=== PATIENT | female | born 1995 | race Caucasian/White ===

== ENCOUNTER 2018-09-09 04:39 | Emergency (ER) | payer OTHER ==
[2018-09-09 05:00] VITALS: BMI 31.6
[2018-09-09] MEDS ORDERED: ONDANSETRON 4 MG/2 ML VIAL IVPUSH ONE (05:22)
[2018-09-09] MEDS ORDERED: SODIUM CHLORIDE 1,000 ML IV STA (05:22)
[2018-09-09] MEDS ORDERED: MAG HYDROX/AL HYDROX/SIMETH -MYLANTA- ORAL SUSPENSION PO ONE (05:22)
[2018-09-09] MEDS ORDERED: FAMOTIDINE 20 MG/50 ML IVPB 20 MG/50 ML MG IVPB ONE ×2 (05:22→05:43)
[2018-09-09] MEDS ORDERED: ACETAMINOPHEN 1000 MG/100 ML VIAL (NON FORMULARY) IVPB ONE (05:22)
[2018-09-09] MEDS ORDERED: ACETAMINOPHEN INJECTION 100 ML IVPB ONE (05:43)
[2018-09-09] MEDS ORDERED: MAG HYDROX/AL HYDROX/SIMETH 30 ML UNIT-DOSE CUP ONE (05:43)
[2018-09-09] MEDS ORDERED: ONDANSETRON 4 MG/2 ML VIAL ONE (05:43)
--- NOTE | 2018-09-09 05:46 | PDOC ---
History of Present Illness - General Chief Complaint: Pain Stated Complaint: ABDOMINAL PAIN Time Seen by Provider: 09/09/18 04:47 - History of Present Illness Initial Comments: 23yo F smoker and marijuana user presenting with abdominal pain. Patient states the pain started yesterday afternoon and described as a throbbing and pinching. She has never had anything like this happen before. Patient reports having difficulty sleeping and worsening 10/10 pain prompted her to come to the ED. Unable to specify what makes her pain worse except for laying flat. She has had three episodes of NBNB vomiting. Last bowel movement was a loose green stool without blood. She has not been able to tolerate eating without vomiting. History of . Took an aleve for a headache which helped her headache but did nothing for her abdominal pain. Denies fevers, but has had chills. Reports shortness of breath which she attributes to her abdominal pain. Denies sick contacts. No chest pain. Past History - Past Medical History Allergies/Adverse Reactions: Allergies Allergy/AdvReac Type Severity Reaction Status Date / Time No Known Drug Allergies Allergy Verified 09/09/18 04:56 Home Medications: Ambulatory Orders Famotidine [Pepcid] 20 mg PO BID #6 tablet 09/09/18 Ondansetron [Zofran Odt -] 4 mg SL TID #9 od.tablet 09/09/18 Anemia: No Asthma: No Cancer: No Cardiac Disorders: No CVA: No COPD: No CHF: No Dementia: No Diabetes: No GI Disorders: No Disorders: No HTN: No Hypercholesterolemia: No Kidney Stones: No Liver Disease: No Seizures: No Thyroid Disease: No - Reproductive History PID: No - Suicide/Smoking/Psychosocial Hx Smoking History: Never smoked Have you smoked in the past 12 months: No Number of Cigarettes Smoked Daily: 15 If you are a former smoker, when did you quit?: quit when knew about pregn at 2 months gestation Information on smoking cessation initiated: No 'Breaking Loose' booklet given: 05/04/14 Hx Alcohol Use: Yes Drug/Substance Use Hx: No Substance Use Type: Marijuana Hx Substance Use Treatment: No Review of Systems - Review of Systems Comments:: Constitutional: no fever, +chills HEENT: no throat pain, no dysphagia Cardiovascular: no chest pain, no palpitations Respiratory: no cough, +shortness of breath Gastrointestinal: +abdominal pain, +nausea, +vomiting Genitourinary: no dysuria, no frequency Musculoskeletal: no myalgia, no arthralgia Skin: no rash, no itching Neurologic: no headache, no dizziness *Physical Exam - Vital Signs Last Vital Signs Temp Pulse Resp BP Pulse Ox 99.5 F 89 18 115/65 99 09/09/18 04:40 09/09/18 04:40 09/09/18 04:40 09/09/18 04:40 09/09/18 04:40 - Physical Exam Comments: General: Awake, alert, and fully oriented Head: No signs of trauma Eyes: EOMI, sclera anicteric ENT: Dry mucus membranes Neck: Normal ROM, supple Lungs: Lungs clear, Normal breath sounds Cardio: Regular rhythm, S1 and S2 present Abdomen: Tender to palpation diffusely, Soft, nondistended with guarding. No rebound, no masses Extremities: Normal range of motion, Distal pulses present SKIN: Warm, Dry, normal turgor Neurologic: Cranial nerves II through XII grossly intact. Normal speech Moderate Sedation - Procedure Monitoring Vital Signs: Procedure Monitoring Vital Signs Temperature 99.5 F 09/09/18 04:40 Pulse Rate 89 09/09/18 04:40 Respiratory Rate 18 09/09/18 04:40 Blood Pressure 115/65 09/09/18 04:40 O2 Sat by Pulse Oximetry (%) 99 09/09/18 04:40 ED Treatment Course - LABORATORY CBC & Chemistry Diagram: 09/09/18 05:30 09/09/18 05:30 Medical Decision Making - Medical Decision Making 23yo F smoker and marijuana user presenting with abdominal pain. -DDX includes but not limited to gastroenteritis, pancreatitis, UTI, , cholecystitis -Labs -Ofirmev, Pepcid, Maalox, Fluids -Reassess 09/09/18 05:49 Patient observed sleeping in stretcher 09/09/18 06:44 Patient reports continued 06/09 abdominal pain. No longer nauseous. Abdominal exam still elicits tenderness diffusely. 2mg morphine ordered CTAP with iv contrast ordered 09/09/18 06:53 Patient signed out to Dr. Sierra 09/09/18 07:09 *DC/Admit/Observation/Transfer Diagnosis at time of Disposition: Vomiting Qualifiers: Vomiting type: unspecified Vomiting Intractability: unspecified Nausea presence : unspecified Qualified Code(s): R11.10 - Vomiting, unspecified Abdominal pain Qualifiers: Abdominal location: unspecified location Qualified Code(s): R10.9 - Unspecified abdominal pain - Discharge Dispostion Disposition: HOME Condition at time of disposition: Fair - Prescriptions Prescriptions: Famotidine [Pepcid] 20 mg PO BID #6 tablet Ondansetron [Zofran Odt -] 4 mg SL TID #9 od.tablet - Referrals Referrals: Umm Kraus MD [Primary Care Provider] - - Patient Instructions Printed Discharge Instructions: DI for Abdominal Pain-Adult, Nausea and Vomiting-Adult Additional Instructions: You were evaluated today in the ER for your symptoms. No concerning findings were found at this time on laboratory evaluation or with CT scan. We have sent medications to your pharmacy for symptomatic relief. Take all as proscribed. Follow-up with primary care provider in 2-3 days for further evaluation. Return to ER if any fever, chills, increase in pain, or other concerning symptoms. - Post Discharge Activity
--- NOTE | 2018-09-09 06:07 | PDOC ---
Attending Attestation - Resident Resident Name: KyleeShefali - ED Attending Attestation I have performed the following: I have examined & evaluated the patient, The case was reviewed & discussed with the resident, I agree w/resident's findings & plan, Exceptions are as noted - HPI HPI: 09/09/18 06:05 23F no pmh, psh , active marijuana smoker here with pinching abdominal px, persistent since yesterday a/w n/v, nbnb - Physicial Exam PE: 09/09/18 07:20 Patient visibly uncomfortable, holding abd Abd soft, diffusely tender, no guarding, no rebound - Medical Decision Making 09/09/18 07:20 Likely AGE, consider hepatobiliary pathology, pancreatitis, oil mixer pathology f/u labs analgesia, re-eval if no improvement, focality in abd exam, will need imaging
[2018-09-09 06:08] LABS: ALBUMIN 3.8 g/dl (3.4-5.0); ALK PHOS 74 U/L (45-117); ANION GAP 7 MMOL/L (8-16); BILIRUBIN,TOTAL 0.9 mg/dL (0.2-1); BLOOD UREA NITROGEN 11 mg/dL (7-18); CALCIUM 8.8 mg/dL (8.5-10.1); CHLORIDE 104 mmol/L (98-107); CO2 25 mmol/L (21-32); CREATININE 0.8 mg/dL (0.55-1.3); GLUCOSE,RANDOM 84 mg/dL (74-106); LIPASE 40 U/L (73-393); POTASSIUM 3.3 mmol/L (3.5-5.1); SGOT/AST 10 U/L (15-37); SGPT/ALT 14 U/L (13-61); SODIUM 136 mmol/L (136-145); TOT PROT 7.4 g/dl (6.4-8.2)
[2018-09-09 06:09] LABS: BASO % 0.4 % (0-2.0); HEMATOCRIT 39.9 % (32.4-45.2); HEMOGLOBIN 12.4 GM/dL (10.7-15.3); LYMPH % 4.5 % (8-40); MCH 23.8 pg (25.7-33.7); MCHC 31.1 g/dl (32.0-36.0); MEAN CELL VOLUME 76.6 fl (80-96); MEAN PLT VOLUME 8.3 fl (7.5-11.1); NEUT % 93.1 % (42.8-82.8); PLATELET COUNT 157 K/MM3 (134-434); RBC 5.21 M/mm3 (3.60-5.2); RDW 18.6 % (11.6-15.6); WHITE BLOOD COUNT 10.8 K/mm3 (4.0-10.0)
[2018-09-09 06:53] LABS: HCG,QUALITATIVE URINE Negative
[2018-09-09] MEDS ORDERED: morphine CARPU-JECT 2 MG/1 ML DISP.SYRIN IVPUSH ONE (06:57)
[2018-09-09] MEDS ORDERED: MORPHINE SULFATE 2 MG/ML VIAL ONE (07:00)
--- NOTE | 2018-09-09 07:04 | PDOC ---
History of Present Illness - General Chief Complaint: Pain Stated Complaint: ABDOMINAL PAIN Time Seen by Provider: 09/09/18 04:47 Past History - Past Medical History Allergies/Adverse Reactions: Allergies Allergy/AdvReac Type Severity Reaction Status Date / Time No Known Drug Allergies Allergy Verified 09/09/18 04:56 Home Medications: Ambulatory Orders Famotidine [Pepcid] 20 mg PO BID #6 tablet 09/09/18 Ondansetron [Zofran Odt -] 4 mg SL TID #9 od.tablet 09/09/18 Anemia: No Asthma: No Cancer: No Cardiac Disorders: No CVA: No COPD: No CHF: No Dementia: No Diabetes: No GI Disorders: No Disorders: No HTN: No Hypercholesterolemia: No Kidney Stones: No Liver Disease: No Seizures: No Thyroid Disease: No - Reproductive History PID: No - Immunization History Immunization Up to Date: Yes - Suicide/Smoking/Psychosocial Hx Smoking History: Never smoked Have you smoked in the past 12 months: No Number of Cigarettes Smoked Daily: 15 If you are a former smoker, when did you quit?: quit when knew about pregn at 2 months gestation Information on smoking cessation initiated: No 'Breaking Loose' booklet given: 05/04/14 Hx Alcohol Use: Yes Drug/Substance Use Hx: No Substance Use Type: Marijuana Hx Substance Use Treatment: No *Physical Exam - Vital Signs Last Vital Signs Temp Pulse Resp BP Pulse Ox 99.5 F 89 18 115/65 99 09/09/18 04:40 09/09/18 04:40 09/09/18 04:40 09/09/18 04:40 09/09/18 04:40 Moderate Sedation - Procedure Monitoring Vital Signs: Procedure Monitoring Vital Signs Temperature 99.5 F 09/09/18 04:40 Pulse Rate 89 09/09/18 04:40 Respiratory Rate 18 09/09/18 04:40 Blood Pressure 115/65 09/09/18 04:40 O2 Sat by Pulse Oximetry (%) 99 09/09/18 04:40 ED Treatment Course - LABORATORY CBC & Chemistry Diagram: 09/09/18 05:30 09/09/18 05:30 - ADDITIONAL ORDERS Additional order review: Laboratory Results 09/09/18 09/09/18 06:12 05:30 Sodium 136 Potassium 3.3 L Chloride 104 Carbon Dioxide 25 Anion Gap 7 L BUN 11 Creatinine 0.8 Creat Clearance w eGFR > 60 Random Glucose 84 Calcium 8.8 Total Bilirubin 0.9 AST 10 L ALT 14 Alkaline Phosphatase 74 Total Protein 7.4 Albumin 3.8 Lipase 40 L Urine HCG, Qual Negative 09/09/18 05:30 RBC 5.21 H MCV 76.6 L MCHC 31.1 L RDW 18.6 H MPV 8.3 Neutrophils % 93.1 H D Lymphocytes % 4.5 L D Monocytes % 2.0 L Eosinophils % 0.0 D Basophils % 0.4 - Medications Given in the ED: ED Medications Discontinued Medications Generic Name Dose Route Start Last Admin Trade Name Freq PRN Reason Stop Dose Admin Acetaminophen 1,000 mg 09/09/18 05:22 09/09/18 05:52 Ofirmev Injection - IVPB 09/09/18 05:23 1,000 mg ONCE ONE Administration Al Hydroxide/Mg Hydroxide 30 ml 09/09/18 05:22 09/09/18 05:52 Mylanta Suspension - PO 09/09/18 05:23 30 ml ONCE ONE Administration Famotidine/Sodium Chloride 20 mg in 50 mls @ 100 mls/hr 09/09/18 05:22 06:00 Pepcid 20 Mg Premixed Ivpb - IVPB 09/09/18 05:51 100 mls/hr ONCE ONE Administration Sodium Chloride 1,000 mls @ 1,000 mls/hr 09/09/18 05:22 09/09/18 05:52 Normal Saline - IV 09/09/18 06:21 1,000 mls/hr ASDIR STA Administration Morphine Sulfate 2 mg 09/09/18 06:57 09/09/18 07:03 Morphine Injection - IVPUSH 09/09/18 06:58 2 mg ONCE ONE Administration Ondansetron HCl 4 mg 09/09/18 05:22 09/09/18 05:52 Zofran Injection IVPUSH 09/09/18 05:23 4 mg ONCE ONE Administration Medical Decision Making - Medical Decision Making 09/09/18 07:[address] Pichardo. Patient is a 23 yo female w/ no significant pmh currently pending abdominal/pelvis CT for evaluation of N/V/abdominal pain. 09/09/18 09:[address] negative. No concern for acute process at this time. Discharging patient to home w/ instructions to f/u w/ PCP for further evaluation. *DC/Admit/Observation/Transfer Diagnosis at time of Disposition: Vomiting Qualifiers: Vomiting type: unspecified Vomiting Intractability: unspecified Nausea presence : unspecified Qualified Code(s): R11.10 - Vomiting, unspecified Abdominal pain Qualifiers: Abdominal location: unspecified location Qualified Code(s): R10.9 - Unspecified abdominal pain - Discharge Dispostion Disposition: HOME Condition at time of disposition: Fair - Prescriptions Prescriptions: Famotidine [Pepcid] 20 mg PO BID #6 tablet Ondansetron [Zofran Odt -] 4 mg SL TID #9 od.tablet - Referrals Referrals: Umm Kraus MD [Primary Care Provider] - - Patient Instructions Printed Discharge Instructions: DI for Abdominal Pain-Adult, Nausea and Vomiting-Adult Additional Instructions: You were evaluated today in the ER for your symptoms. No concerning findings were found at this time on laboratory evaluation or with CT scan. We have sent medications to your pharmacy for symptomatic relief. Take all as proscribed. Follow-up with primary care provider in 2-3 days for further evaluation. Return to ER if any fever, chills, increase in pain, or other concerning symptoms. - Post Discharge Activity
[2018-09-09 07:18] LABS: URINE APPEARANCE TURBID; URINE BILIRUBIN NEGATIVE (<2.0 mg/dL); URINE COLOR YELLOW; URINE GLUCOSE (UA) NEGATIVE (NEGATIVE); URINE KETONE TRACE (NEGATIVE); URINE LEUK ESTERASE TRACE (NEGATIVE); URINE NITRITE NEGATIVE (NEGATIVE); URINE PROTEIN 1+ (NEGATIVE); URINE UROBILINOGEN NEGATIVE mg/dL (0.2-1.0)
[2018-09-09 08:12] LABS: URINE BACTERIA FEW /hpf (NONE SEEN)
[2018-09-09 10:28] VITALS: BP 122/69; PULSE 75; TEMP 98.6
[2018-09-09 10:39] LABS: ANISOCYTOSIS 1+; MACROCYTOSIS 0
[2018-09-09 10:58] LABS: PLATELET ESTIMATE ADEQUATE
== END 2018-09-09 10:41 | disposition home or self-care (01) ==
LOC: JER 04:39
PROC: 3E033GC Introduction of Other Therapeutic Substance into Peripheral Vein, Percutaneous Approach (ICD-10-PCS; principal; 2018-09-09)
PROC: 3E033NZ Introduction of Analgesics, Hypnotics, Sedatives into Peripheral Vein, Percutaneous Approach (ICD-10-PCS; 2018-09-09)
PROC: 3E033NZ Introduction of Analgesics, Hypnotics, Sedatives into Peripheral Vein, Percutaneous Approach (ICD-10-PCS; 2018-09-09)
PROC: 3E033GC Introduction of Other Therapeutic Substance into Peripheral Vein, Percutaneous Approach (ICD-10-PCS; 2018-09-09)
DX: R10.84 Generalized abdominal pain (principal)
CPT/HCPCS: 36415; 74177-TC; 80053; 81003; 81015; 83690; 84703; 85025; 87086; 99282-25; J0131; J7030

== ENCOUNTER 2022-09-04 18:22 | Emergency (ER) | payer OTHER ==
[2022-09-04 19:04] VITALS: BP 98/66; PULSE 75; RESP 17; TEMP 98; BMI 26.6
[2022-09-04 20:31] LABS: URINE APPEARANCE CLEAR; URINE BILIRUBIN NEGATIVE (NEGATIVE); URINE COLOR YELLOW; URINE GLUCOSE (UA) NEGATIVE (NEGATIVE); URINE KETONE NEGATIVE (NEGATIVE); URINE LEUK ESTERASE NEGATIVE (NEGATIVE); URINE NITRITE NEGATIVE (NEGATIVE); URINE PROTEIN NEGATIVE (NEGATIVE); URINE UROBILINOGEN 0.2 mg/dL (0.2-1.0)
== END 2022-09-04 20:41 | disposition home or self-care (01) ==
LOC: JERFT 18:22
PROC: 3E023GC Introduction of Other Therapeutic Substance into Muscle, Percutaneous Approach (ICD-10-PCS; principal; 2022-09-04)
DX: R10.2 Pelvic and perineal pain (principal)
CPT/HCPCS: 36415; 81003; 87086; 87491; 87591; 99284-25

== ENCOUNTER 2024-03-25 10:53 | Inpatient (IN) | payer OTHER ==
[2024-03-25 11:41] VITALS: BMI 25.8
[2024-03-25] MEDS ORDERED: guaiFENesin 600 MG TABLET.ER (FP) PO PRN (11:55)
[2024-03-25] MEDS ORDERED: NALOXONE (NARCAN) HCL 4 MG/0.1 ML SPRAY NS PRN (11:55)
[2024-03-25] MEDS ORDERED: P-EPHED 60MG/TRIPROLIDI 2.5MG TABLET PO PRN (11:55)
[2024-03-25] MEDS ORDERED: BISMUTH SUBSALICYLATE 524 MG/30 ML PO PRN (11:55)
[2024-03-25] MEDS ORDERED: IBUPROFEN 400 MG TABLET (FP) PO PRN (11:55)
[2024-03-25] MEDS ORDERED: MAGNESIUM HYDROX 2400MG/30ML ORAL SUSPENSION 30 ML CUP PO PRN (11:55)
[2024-03-25] MEDS ORDERED: BENZOCAINE/MENTHOL (CHLORASEPTIC ) LOZENGE MM PRN (11:55)
[2024-03-25] MEDS ORDERED: DICYCLOMINE HCL 10 MG CAPSULE PO PRN (11:55)
[2024-03-25] MEDS ORDERED: ONDANSETRON *ODT* 4 MG TABLET SL PRN (11:55)
[2024-03-25] MEDS ORDERED: POLYETHYLENE GLYCOL (HEALTHYLAX) 3350 17 GM PACKET PO PRN (11:55)
[2024-03-25] MEDS ORDERED: LOPERAMIDE HCL 2 MG CAPSULE PO PRN (11:55)
[2024-03-25] MEDS ORDERED: NALOXONE HCL 0.4 MG/ML VIAL IM PRN (11:55)
[2024-03-25] MEDS ORDERED: BENZONATATE 200 MG CAPSULE PO PRN (11:55)
[2024-03-25] MEDS ORDERED: methaDONE HCL 10 MG TABLET (FOR DETOX USE ONLY) ONE (12:28)
[2024-03-25] MEDS ORDERED: METHOCARBAMOL 500 MG TABLET ONE (12:29)
[2024-03-25] MEDS: METHOCARBAMOL 500 MG TABLET PO PRN ×2 (12:35→22:21)
[2024-03-25] MEDS: methaDONE HCL 10 MG TABLET (FOR DETOX USE ONLY) PO ONE (12:35)
[2024-03-25] MEDS ORDERED: hydrOXYzine PAMOATE 25 MG CAPSULE (FP) PO ONE (14:26)
[2024-03-25] MEDS: hydrOXYzine PAMOATE 50 MG CAPSULE (FP) PO ONE (14:31)
[2024-03-25] MEDS: cloNIDine HCL 0.1 MG TABLET PO PRN (15:22)
[2024-03-25] MEDS: ACETAMINOPHEN 325 MG TABLET (FP) PO PRN (15:22)
[2024-03-25] MEDS: diazePAM 5 MG TABLET PO PRN (20:11)
[2024-03-25] MEDS: MELATONIN 5 MG TABLETS PO SCH (22:20)
[2024-03-25] MEDS: THIAMINE 100 MG TABLET PO SCH (22:20)
[2024-03-26] MEDS: IBUPROFEN 600 MG TABLET (FP) PO PRN (01:36)
[2024-03-26] MEDS: diazePAM 5 MG TABLET PO ONE (01:48)
[2024-03-26] MEDS: methaDONE HCL 10 MG TABLET (FOR DETOX USE ONLY) PO ONE (09:24)
[2024-03-26] MEDS: PRENATAL VITAMINS W/ FOLIC ACID TABLET (FP) PO SCH (09:25)
[2024-03-26] MEDS: hydrOXYzine PAMOATE 25 MG CAPSULE (FP) PO PRN (10:21)
[2024-03-26 10:45] LABS: HEMATOCRIT 36.6 % (32.4-45.2); HEMOGLOBIN 12.6 GM/dL (10.7-15.3); MCH 30.8 pg (25.7-33.7); MCHC 34.4 g/dl (32.0-36.0); MEAN CELL VOLUME 89.6 fl (80-96); MEAN PLT VOLUME 9.8 fl (7.5-11.1); PLATELET COUNT 139 10^3/uL (134-434); RBC 4.09 M/mm3 (3.60-5.2); RDW 14.5 % (11.6-15.6)
[2024-03-26 10:58] LABS: POTASSIUM 4.3 mmol/L (3.5-5.1)
[2024-03-26 11:03] LABS: ALBUMIN 4.1 g/dl (3.4-5.0)
[2024-03-26 11:04] LABS: BLOOD UREA NITROGEN 7.3 mg/dL (7-18); CALCIUM 9.7 mg/dL (8.5-10.1)
[2024-03-26 11:06] LABS: CREATININE 0.7 mg/dL (0.55-1.3)
[2024-03-26 11:09] LABS: BILIRUBIN,TOTAL 0.8 mg/dL (0.2-1); TOT PROT 7.2 g/dl (6.4-8.2)
[2024-03-26] MEDS: MELATONIN 5 MG TABLETS PO SCH (22:02)
[2024-03-27] MEDS: MAG HYDROX/AL HYDROX/SIMETH 30 ML UNIT-DOSE CUP PO PRN (08:31)
[2024-03-27] MEDS: methaDONE HCL 10 MG TABLET (FOR DETOX USE ONLY) PO ONE (09:14)
[2024-03-27 09:21] VITALS: RESP 18
[2024-03-27] MEDS: QUEtiapine FUMARATE 25 MG TABLET PO SCH (21:12)
[2024-03-28] MEDS: methaDONE HCL 10 MG TABLET (FOR DETOX USE ONLY) PO ONE (09:11)
[2024-03-28 09:21] VITALS: BP 99/61; PULSE 81; TEMP 97.7
== END 2024-03-28 09:15 | disposition home or self-care (01) | DRG 773 ==
LOC: YASAS 10:53 → Y3N 14:23
PROVIDERS: ADMIT Allergy & Immunology; ATTEND Surgery
PROC: HZ2ZZZZ Detoxification Services for Substance Abuse Treatment (ICD-10-PCS; principal; 2024-03-25)
DX: F11.23 Opioid dependence with withdrawal (principal); F10.230 Alcohol dependence with withdrawal, uncomplicated; F12.20 Cannabis dependence, uncomplicated; F31.9 Bipolar disorder, unspecified; F41.9 Anxiety disorder, unspecified; Z62.810 Personal history of physical and sexual abuse in childhood; Z63.8 Other specified problems related to primary support group
CPT/HCPCS: 36415; 80053; 80305; 80307; 81025; 85027; 86780; 93005; 93010

== ENCOUNTER 2024-04-06 09:09 | Inpatient (IN) | payer OTHER ==
[2024-04-06 09:38] VITALS: BMI 25.0
[2024-04-06] MEDS ORDERED: NALOXONE HCL 0.4 MG/ML VIAL IM PRN (10:49)
[2024-04-06] MEDS ORDERED: BENZOCAINE/MENTHOL (CHLORASEPTIC ) LOZENGE MM PRN (10:49)
[2024-04-06] MEDS ORDERED: POLYETHYLENE GLYCOL (HEALTHYLAX) 3350 17 GM PACKET PO PRN (10:49)
[2024-04-06] MEDS ORDERED: LOPERAMIDE HCL 2 MG CAPSULE PO PRN (10:49)
[2024-04-06] MEDS ORDERED: BISMUTH SUBSALICYLATE 262 MG/15 ML BTL PO PRN (10:49)
[2024-04-06] MEDS ORDERED: MAGNESIUM HYDROX 2400MG/30ML ORAL SUSPENSION 30 ML CUP PO PRN (10:49)
[2024-04-06] MEDS ORDERED: ONDANSETRON *ODT* 4 MG TABLET SL PRN (10:49)
[2024-04-06] MEDS ORDERED: guaiFENesin 600 MG TABLET.ER (FP) PO PRN (10:49)
[2024-04-06] MEDS ORDERED: NALOXONE (NARCAN) HCL 4 MG/0.1 ML SPRAY NS PRN (10:49)
[2024-04-06] MEDS ORDERED: MAG HYDROX/AL HYDROX/SIMETH 30 ML UNIT-DOSE CUP PO PRN (10:49)
[2024-04-06] MEDS ORDERED: BENZONATATE 200 MG CAPSULE PO PRN (10:49)
[2024-04-06] MEDS ORDERED: DICYCLOMINE HCL 10 MG CAPSULE PO PRN (10:49)
[2024-04-06] MEDS ORDERED: IBUPROFEN 400 MG TABLET (FP) PO PRN (10:49)
[2024-04-06] MEDS ORDERED: methaDONE HCL 10 MG TABLET (FOR DETOX USE ONLY) ONE (11:10)
[2024-04-06] MEDS: methaDONE HCL 10 MG TABLET (FOR DETOX USE ONLY) PO ONE (11:18)
[2024-04-06] MEDS: cloNIDine HCL 0.1 MG TABLET PO PRN (12:32)
[2024-04-06] MEDS: hydrOXYzine PAMOATE 25 MG CAPSULE (FP) PO PRN (12:32)
[2024-04-06] MEDS: METHOCARBAMOL 500 MG TABLET PO PRN (12:48)
[2024-04-06] MEDS: diazePAM 5 MG TABLET PO PRN (12:48)
[2024-04-06] MEDS: clonazePAM 0.5 MG ODT TABLETS SL PRN (17:24)
[2024-04-06] MEDS: THIAMINE 100 MG TABLET PO SCH (21:29)
[2024-04-06] MEDS: MELATONIN 5 MG TABLETS PO SCH (21:29)
[2024-04-07] MEDS: PRENATAL VITAMINS W/ FOLIC ACID TABLET (FP) PO SCH (09:11)
[2024-04-07] MEDS: diazePAM 5 MG TABLET PO PRN (09:19)
[2024-04-07] MEDS: ACETAMINOPHEN 325 MG TABLET (FP) PO PRN (11:01)
[2024-04-07] MEDS: BUPRENORPHINE/NALOXONE 0.5 MG/0.125 MG FILM SL ONE ×2 (11:01→22:09)
[2024-04-07] MEDS: SUVOREXANT 10 MG TABLET PO PRN (22:09)
[2024-04-08] MEDS: BUPRENORPHINE/NALOXONE 0.5 MG/0.125 MG FILM SL SCH (09:47)
[2024-04-08] MEDS: methaDONE HCL 10 MG TABLET (FOR DETOX USE ONLY) PO ONE (09:47)
[2024-04-08] MEDS: SUVOREXANT 15 MG TABLET PO PRN (22:12)
[2024-04-09] MEDS: BUPRENORPHINE/NALOXONE 2 MG/0.5 MG FILM PACKET SL SCH (09:45)
[2024-04-09] MEDS: IBUPROFEN 600 MG TABLET (FP) PO PRN (17:41)
[2024-04-10] MEDS: methaDONE HCL 10 MG TABLET (FOR DETOX USE ONLY) PO ONE (09:50)
[2024-04-10] MEDS: BUPRENORPHINE/NALOXONE 4 MG/1 MG FILM PACKET SL SCH (09:50)
[2024-04-11 09:15] VITALS: BP 113/69; PULSE 66; RESP 16; TEMP 96.9
[2024-04-11] MEDS: BUPRENORPHINE/NALOXONE 8 MG/2 MG FILM PACKET SL SCH (09:16)
== END 2024-04-11 10:13 | disposition home or self-care (01) | DRG 773 ==
LOC: YASAS 09:09 → Y6N 11:17 → UNDODISIN 04-07 18:18
PROVIDERS: ADMIT Allergy & Immunology; ATTEND Surgery
PROC: HZ2ZZZZ Detoxification Services for Substance Abuse Treatment (ICD-10-PCS; principal; 2024-04-06)
DX: F11.23 Opioid dependence with withdrawal (principal); F12.20 Cannabis dependence, uncomplicated; F39 Unspecified mood [affective] disorder; F19.982 Other psychoactive substance use, unspecified with psychoactive substance-induced sleep disorder; F19.94 Other psychoactive substance use, unspecified with psychoactive substance-induced mood disorder; M32.9 Systemic lupus erythematosus, unspecified; Z87.891 Personal history of nicotine dependence; Z62.810 Personal history of physical and sexual abuse in childhood; Z86.19 Personal history of other infectious and parasitic diseases; Z56.0 Unemployment, unspecified
CPT/HCPCS: 80305; 81025; 93005; 93010

== ENCOUNTER 2024-04-26 13:10 | Inpatient (IN) | payer OTHER ==
[2024-04-26 14:22] VITALS: BMI 26.2
[2024-04-26] MEDS ORDERED: NALOXONE (NARCAN) HCL 4 MG/0.1 ML SPRAY NS PRN (15:32)
[2024-04-26] MEDS ORDERED: BISMUTH SUBSALICYLATE 262 MG/15 ML BTL PO PRN (15:32)
[2024-04-26] MEDS ORDERED: POLYETHYLENE GLYCOL (HEALTHYLAX) 3350 17 GM PACKET PO PRN (15:32)
[2024-04-26] MEDS ORDERED: MAGNESIUM HYDROX 2400MG/30ML ORAL SUSPENSION 30 ML CUP PO PRN (15:32)
[2024-04-26] MEDS ORDERED: P-EPHED 60MG/TRIPROLIDI 2.5MG TABLET PO PRN (15:32)
[2024-04-26] MEDS ORDERED: IBUPROFEN 400 MG TABLET (FP) PO PRN (15:32)
[2024-04-26] MEDS ORDERED: IBUPROFEN 600 MG TABLET (FP) PO PRN (15:32)
[2024-04-26] MEDS ORDERED: ACETAMINOPHEN 325 MG TABLET (FP) PO PRN (15:32)
[2024-04-26] MEDS ORDERED: NALOXONE HCL 0.4 MG/ML VIAL IM PRN (15:32)
[2024-04-26] MEDS ORDERED: BENZOCAINE/MENTHOL (CHLORASEPTIC ) LOZENGE MM PRN (15:32)
[2024-04-26] MEDS ORDERED: MAG HYDROX/AL HYDROX/SIMETH 30 ML UNIT-DOSE CUP PO PRN (15:32)
[2024-04-26] MEDS ORDERED: BENZONATATE 200 MG CAPSULE PO PRN (15:32)
[2024-04-26] MEDS ORDERED: LOPERAMIDE HCL 2 MG CAPSULE PO PRN (15:32)
[2024-04-26] MEDS ORDERED: guaiFENesin 600 MG TABLET.ER (FP) PO PRN (15:32)
[2024-04-26] MEDS ORDERED: methaDONE HCL 10 MG TABLET (FOR DETOX USE ONLY) ONE (15:46)
[2024-04-26] MEDS: methaDONE HCL 10 MG TABLET (FOR DETOX USE ONLY) PO ONE (15:51)
[2024-04-26] MEDS: hydrOXYzine PAMOATE 25 MG CAPSULE (FP) PO PRN (17:10)
[2024-04-26] MEDS: cloNIDine HCL 0.1 MG TABLET PO PRN (17:10)
[2024-04-26] MEDS: DICYCLOMINE HCL 10 MG CAPSULE PO PRN (17:11)
[2024-04-26] MEDS: ONDANSETRON *ODT* 4 MG TABLET SL PRN (17:47)
[2024-04-26] MEDS: diazePAM 5 MG TABLET PO PRN (22:10)
[2024-04-26] MEDS: MELATONIN 5 MG TABLETS PO SCH (22:10)
[2024-04-26] MEDS: METHOCARBAMOL 500 MG TABLET PO PRN (22:10)
[2024-04-26] MEDS: THIAMINE 100 MG TABLET PO SCH (22:10)
[2024-04-27] MEDS: PRENATAL VITAMINS W/ FOLIC ACID TABLET (FP) PO SCH (09:31)
[2024-04-27] MEDS: SUVOREXANT 15 MG TABLET PO PRN (22:21)
[2024-04-28 06:27] VITALS: RESP 16
[2024-04-28] MEDS: methaDONE HCL 10 MG TABLET (FOR DETOX USE ONLY) PO ONE (09:48)
[2024-04-28 09:54] VITALS: BP 117/63; PULSE 85; TEMP 97.7
[2024-04-30] MEDS ORDERED: methaDONE HCL 10 MG TABLET (FOR DETOX USE ONLY) PO ONE (10:00)
== END 2024-04-28 10:40 | disposition left against medical advice (07) | DRG 770 ==
LOC: YASAS 13:10 → Y3N 16:37 → Y6N 16:43
PROVIDERS: ADMIT Allergy & Immunology; ATTEND Surgery
PROC: HZ2ZZZZ Detoxification Services for Substance Abuse Treatment (ICD-10-PCS; principal; 2024-04-26)
DX: F11.23 Opioid dependence with withdrawal (principal); F12.20 Cannabis dependence, uncomplicated; F19.282 Other psychoactive substance dependence with psychoactive substance-induced sleep disorder; F39 Unspecified mood [affective] disorder; F41.9 Anxiety disorder, unspecified; D64.9 Anemia, unspecified; M32.9 Systemic lupus erythematosus, unspecified; Z62.810 Personal history of physical and sexual abuse in childhood; Z91.410 Personal history of adult physical and sexual abuse; Z63.0 Problems in relationship with spouse or partner; Z63.8 Other specified problems related to primary support group
CPT/HCPCS: 80305; 81025; Q0162

== ENCOUNTER 2024-05-06 08:56 | Inpatient (IN) | payer OTHER ==
[2024-05-06 09:40] VITALS: BMI 26.7
[2024-05-06] MEDS ORDERED: ONDANSETRON *ODT* 4 MG TABLET SL PRN (09:57)
[2024-05-06] MEDS ORDERED: BISMUTH SUBSALICYLATE 262 MG/15 ML BTL PO PRN (09:57)
[2024-05-06] MEDS ORDERED: BENZONATATE 200 MG CAPSULE PO PRN (09:57)
[2024-05-06] MEDS ORDERED: BENZOCAINE/MENTHOL (CHLORASEPTIC ) LOZENGE MM PRN (09:57)
[2024-05-06] MEDS ORDERED: MAG HYDROX/AL HYDROX/SIMETH 30 ML UNIT-DOSE CUP PO PRN (09:57)
[2024-05-06] MEDS ORDERED: NALOXONE (NARCAN) HCL 4 MG/0.1 ML SPRAY NS PRN (09:57)
[2024-05-06] MEDS ORDERED: LOPERAMIDE HCL 2 MG CAPSULE PO PRN (09:57)
[2024-05-06] MEDS ORDERED: POLYETHYLENE GLYCOL (HEALTHYLAX) 3350 17 GM PACKET PO PRN (09:57)
[2024-05-06] MEDS ORDERED: MAGNESIUM HYDROX 2400MG/30ML ORAL SUSPENSION 30 ML CUP PO PRN (09:57)
[2024-05-06] MEDS ORDERED: guaiFENesin 600 MG TABLET.ER (FP) PO PRN (09:57)
[2024-05-06] MEDS ORDERED: NALOXONE HCL 0.4 MG/ML VIAL IM PRN (09:57)
[2024-05-06] MEDS ORDERED: P-EPHED 60MG/TRIPROLIDI 2.5MG TABLET PO PRN (09:57)
[2024-05-06] MEDS: PRENATAL VITAMINS W/ FOLIC ACID TABLET (FP) PO SCH (10:27)
[2024-05-06] MEDS: hydrOXYzine PAMOATE 25 MG CAPSULE (FP) PO PRN (10:29)
[2024-05-06] MEDS ORDERED: hydrOXYzine PAMOATE 25 MG CAPSULE (FP) PO ONE (10:51)
[2024-05-06] MEDS: methaDONE HCL 10 MG TABLET (FOR DETOX USE ONLY) PO ONE (13:07)
[2024-05-06] MEDS: cloNIDine HCL 0.1 MG TABLET PO PRN (17:20)
[2024-05-06] MEDS: IBUPROFEN 400 MG TABLET (FP) PO PRN (17:23)
[2024-05-06] MEDS ORDERED: MELATONIN 5 MG TABLETS PO SCH (22:00)
[2024-05-06] MEDS: THIAMINE 100 MG TABLET PO SCH (22:25)
[2024-05-06] MEDS: SUVOREXANT 15 MG TABLET PO PRN (22:25)
[2024-05-06] MEDS: METHOCARBAMOL 500 MG TABLET PO PRN (22:26)
[2024-05-07] MEDS: DICYCLOMINE HCL 10 MG CAPSULE PO PRN (07:51)
[2024-05-07] MEDS: ACETAMINOPHEN 325 MG TABLET (FP) PO PRN (07:51)
[2024-05-07] MEDS: IBUPROFEN 600 MG TABLET (FP) PO PRN (12:02)
[2024-05-07 17:08] VITALS: RESP 18
[2024-05-08] MEDS: methaDONE HCL 10 MG TABLET (FOR DETOX USE ONLY) PO ONE (09:15)
[2024-05-08 09:49] VITALS: BP 138/69; PULSE 81; TEMP 97.6
[2024-05-10] MEDS ORDERED: methaDONE HCL 10 MG TABLET (FOR DETOX USE ONLY) PO ONE (10:00)
== END 2024-05-08 09:58 | disposition left against medical advice (07) | DRG 770 ==
LOC: YASAS 08:56 → Y6N 11:18
PROVIDERS: ADMIT Allergy & Immunology; ATTEND Family Medicine Addiction Medicine
PROC: HZ2ZZZZ Detoxification Services for Substance Abuse Treatment (ICD-10-PCS; principal; 2024-05-06)
DX: F11.23 Opioid dependence with withdrawal (principal); F13.20 Sedative, hypnotic or anxiolytic dependence, uncomplicated; F12.20 Cannabis dependence, uncomplicated; F19.282 Other psychoactive substance dependence with psychoactive substance-induced sleep disorder; F19.24 Other psychoactive substance dependence with psychoactive substance-induced mood disorder; F41.9 Anxiety disorder, unspecified; Z86.2 Personal history of diseases of the blood and blood-forming organs and certain disorders involving the immune mechanism; Z62.810 Personal history of physical and sexual abuse in childhood; Z91.410 Personal history of adult physical and sexual abuse; Z63.0 Problems in relationship with spouse or partner; Z63.8 Other specified problems related to primary support group
CPT/HCPCS: 80305; 80307; 81025

== ENCOUNTER 2024-05-16 08:51 | Inpatient (IN) | payer OTHER ==
[2024-05-16 09:25] VITALS: BMI 25.7
[2024-05-16] MEDS ORDERED: DICYCLOMINE HCL 10 MG CAPSULE PO PRN (09:35)
[2024-05-16] MEDS ORDERED: MAG HYDROX/AL HYDROX/SIMETH 30 ML UNIT-DOSE CUP PO PRN (09:35)
[2024-05-16] MEDS ORDERED: BENZOCAINE/MENTHOL (CHLORASEPTIC ) LOZENGE MM PRN (09:35)
[2024-05-16] MEDS ORDERED: ONDANSETRON *ODT* 4 MG TABLET SL PRN (09:35)
[2024-05-16] MEDS ORDERED: BISMUTH SUBSALICYLATE 524 MG/30 ML PO PRN (09:35)
[2024-05-16] MEDS ORDERED: BENZONATATE 200 MG CAPSULE PO PRN (09:35)
[2024-05-16] MEDS ORDERED: NALOXONE HCL 0.4 MG/ML VIAL IM PRN (09:35)
[2024-05-16] MEDS ORDERED: POLYETHYLENE GLYCOL (HEALTHYLAX) 3350 17 GM PACKET PO PRN (09:35)
[2024-05-16] MEDS ORDERED: guaiFENesin 600 MG TABLET.ER (FP) PO PRN (09:35)
[2024-05-16] MEDS ORDERED: IBUPROFEN 400 MG TABLET (FP) PO PRN (09:35)
[2024-05-16] MEDS ORDERED: MAGNESIUM HYDROX 2400MG/30ML ORAL SUSPENSION 30 ML CUP PO PRN (09:35)
[2024-05-16] MEDS ORDERED: LOPERAMIDE HCL 2 MG CAPSULE PO PRN (09:35)
[2024-05-16] MEDS ORDERED: NALOXONE (NARCAN) HCL 4 MG/0.1 ML SPRAY NS PRN (09:35)
[2024-05-16] MEDS ORDERED: methaDONE HCL 10 MG TABLET (FOR DETOX USE ONLY) ONE (10:28)
[2024-05-16] MEDS ORDERED: BUPRENORPHINE/NALOXONE 0.5 MG/0.125 MG FILM ONE (10:29)
[2024-05-16] MEDS ORDERED: cloNIDine HCL 0.1 MG TABLET ONE (10:29)
[2024-05-16] MEDS ORDERED: PRENATAL VITAMINS W/ FOLIC ACID TABLET (FP) PO ONE (10:29)
[2024-05-16] MEDS: BUPRENORPHINE/NALOXONE 0.5 MG/0.125 MG FILM SL ONE ×2 (10:34→22:11)
[2024-05-16] MEDS: PRENATAL VITAMINS W/ FOLIC ACID TABLET (FP) PO SCH (10:34)
[2024-05-16] MEDS: cloNIDine HCL 0.1 MG TABLET PO SCH (10:35)
[2024-05-16] MEDS: methaDONE HCL 10 MG TABLET (FOR DETOX USE ONLY) PO ONE (10:35)
[2024-05-16] MEDS: IBUPROFEN 600 MG TABLET (FP) PO PRN (17:27)
[2024-05-16] MEDS: hydrOXYzine PAMOATE 25 MG CAPSULE (FP) PO PRN (17:27)
[2024-05-16] MEDS ORDERED: MELATONIN 5 MG TABLETS PO SCH (22:00)
[2024-05-16] MEDS: THIAMINE 100 MG TABLET PO SCH (22:11)
[2024-05-16] MEDS: METHOCARBAMOL 500 MG TABLET PO PRN (22:12)
[2024-05-16] MEDS: SUVOREXANT 15 MG TABLET PO PRN (22:12)
[2024-05-17] MEDS: BUPRENORPHINE/NALOXONE 0.5 MG/0.125 MG FILM SL SCH (10:11)
[2024-05-17] MEDS: ACETAMINOPHEN 325 MG TABLET (FP) PO PRN (12:09)
[2024-05-17 14:22] LABS: HEMOGLOBIN 11.2 GM/dL (10.7-15.3); MCH 30.4 pg (25.7-33.7); MEAN CELL VOLUME 92.1 fl (80-96); MEAN PLT VOLUME 9.8 fl (7.5-11.1); PLATELET COUNT 149 10^3/uL (134-434); RBC 3.69 M/mm3 (3.60-5.2); RDW 13.9 % (11.6-15.6); WHITE BLOOD COUNT 5.2 K/mm3 (4.0-10.0)
[2024-05-17 14:31] LABS: POTASSIUM 3.3 mmol/L (3.5-5.1)
[2024-05-17 14:44] LABS: ALBUMIN 3.6 g/dl (3.4-5.0)
[2024-05-17 14:45] LABS: CALCIUM 8.8 mg/dL (8.5-10.1)
[2024-05-17 14:46] LABS: BLOOD UREA NITROGEN 17.6 mg/dL (7-18)
[2024-05-17 14:48] LABS: CREATININE 0.7 mg/dL (0.55-1.3)
[2024-05-17 14:49] LABS: BILIRUBIN,TOTAL 0.5 mg/dL (0.2-1)
[2024-05-17 14:52] LABS: TOT PROT 6.4 g/dl (6.4-8.2)
[2024-05-18] MEDS: methaDONE HCL 10 MG TABLET (FOR DETOX USE ONLY) PO ONE (09:17)
[2024-05-18] MEDS: BUPRENORPHINE/NALOXONE 2 MG/0.5 MG FILM PACKET SL SCH (09:18)
[2024-05-18] MEDS: SUMAtriptan SUCCINATE 25 MG TABLET PO ONE (12:07)
[2024-05-19] MEDS: BUPRENORPHINE/NALOXONE 4 MG/1 MG FILM PACKET SL SCH (09:44)
[2024-05-19] MEDS: propRANOLol HCL 10 MG TABLET PO SCH (10:57)
[2024-05-19] MEDS: SUVOREXANT 15 MG TABLET PO PRN (22:44)
[2024-05-20] MEDS: methaDONE HCL 10 MG TABLET (FOR DETOX USE ONLY) PO ONE (10:21)
[2024-05-20] MEDS: BUPRENORPHINE/NALOXONE 8 MG/2 MG FILM PACKET SL SCH (10:22)
[2024-05-20] MEDS: POTASSIUM CHLORIDE ORAL LIQUID 20 MEQ/15 ML PO ONE (12:03)
[2024-05-20] MEDS: cloNIDine HCL 0.1 MG TABLET PO PRN (17:21)
[2024-05-20 17:22] VITALS: RESP 16
[2024-05-21] MEDS: BUPRENORPHINE/NALOXONE 8 MG/2 MG FILM PACKET SL SCH (09:29)
[2024-05-21 09:44] VITALS: BP 113/60; PULSE 72; TEMP 97.7
== END 2024-05-21 10:18 | disposition home or self-care (01) | DRG 773 ==
LOC: YASAS 08:51 → Y6N 09:57
PROVIDERS: ADMIT Allergy & Immunology; ATTEND Surgery
PROC: HZ2ZZZZ Detoxification Services for Substance Abuse Treatment (ICD-10-PCS; principal; 2024-05-16)
DX: F11.23 Opioid dependence with withdrawal (principal); F12.20 Cannabis dependence, uncomplicated; F17.210 Nicotine dependence, cigarettes, uncomplicated; F39 Unspecified mood [affective] disorder; F19.282 Other psychoactive substance dependence with psychoactive substance-induced sleep disorder; E87.5 Hyperkalemia; Z62.810 Personal history of physical and sexual abuse in childhood; Z91.410 Personal history of adult physical and sexual abuse; Z63.8 Other specified problems related to primary support group; Z63.0 Problems in relationship with spouse or partner
CPT/HCPCS: 36415; 80053; 80305; 80307; 81025; 85027; 86780; 93005; 93010

== ENCOUNTER 2024-06-06 08:53 | Inpatient (IN) | payer OTHER ==
[2024-06-06 09:47] VITALS: BMI 28.1
[2024-06-06] MEDS ORDERED: guaiFENesin 600 MG TABLET.ER (FP) PO PRN (10:24)
[2024-06-06] MEDS ORDERED: ONDANSETRON *ODT* 4 MG TABLET SL PRN (10:24)
[2024-06-06] MEDS ORDERED: MAGNESIUM HYDROX 2400MG/30ML ORAL SUSPENSION 30 ML CUP PO PRN (10:24)
[2024-06-06] MEDS ORDERED: LOPERAMIDE HCL 2 MG CAPSULE PO PRN (10:24)
[2024-06-06] MEDS ORDERED: POLYETHYLENE GLYCOL (HEALTHYLAX) 3350 17 GM PACKET PO PRN (10:24)
[2024-06-06] MEDS ORDERED: IBUPROFEN 400 MG TABLET (FP) PO PRN (10:24)
[2024-06-06] MEDS ORDERED: BENZONATATE 200 MG CAPSULE PO PRN (10:24)
[2024-06-06] MEDS ORDERED: NALOXONE (NARCAN) HCL 4 MG/0.1 ML SPRAY NS PRN (10:24)
[2024-06-06] MEDS ORDERED: MAG HYDROX/AL HYDROX/SIMETH 30 ML UNIT-DOSE CUP PO PRN (10:24)
[2024-06-06] MEDS ORDERED: BENZOCAINE/MENTHOL (CHLORASEPTIC ) LOZENGE MM PRN (10:24)
[2024-06-06] MEDS ORDERED: DICYCLOMINE HCL 10 MG CAPSULE PO PRN (10:24)
[2024-06-06] MEDS ORDERED: BISMUTH SUBSALICYLATE 524 MG/30 ML PO PRN (10:24)
[2024-06-06] MEDS ORDERED: SUMAtriptan SUCCINATE 25 MG TABLET PO PRN (10:29)
[2024-06-06] MEDS ORDERED: methaDONE HCL 10 MG TABLET (FOR DETOX USE ONLY) ONE (11:22)
[2024-06-06] MEDS: methaDONE HCL 10 MG TABLET (FOR DETOX USE ONLY) PO ONE (11:23)
[2024-06-06] MEDS ORDERED: BUPRENORPHINE/NALOXONE 0.5 MG/0.125 MG FILM ONE (11:23)
[2024-06-06] MEDS: BUPRENORPHINE/NALOXONE 0.5 MG/0.125 MG FILM SL ONE ×2 (11:24→22:03)
[2024-06-06] MEDS ORDERED: NALOXONE (NYS OPIOID OVERDOSE PROGRAM) 4 MG/0.1 ML SPRAY NS PRN (11:57)
[2024-06-06] MEDS: NALOXONE (NYS OPIOID OVERDOSE PROGRAM) 4 MG/0.1 ML SPRAY NS ONE (12:05)
[2024-06-06] MEDS: IBUPROFEN 600 MG TABLET (FP) PO PRN (13:21)
[2024-06-06] MEDS: cloNIDine HCL 0.1 MG TABLET PO SCH (13:22)
[2024-06-06] MEDS: hydrOXYzine PAMOATE 25 MG CAPSULE (FP) PO PRN (18:01)
[2024-06-06] MEDS: SUVOREXANT 15 MG TABLET PO PRN (22:02)
[2024-06-06] MEDS: THIAMINE 100 MG TABLET PO SCH (22:03)
[2024-06-06] MEDS: MELATONIN 5 MG TABLETS PO SCH (22:03)
[2024-06-07] MEDS: PRENATAL VITAMINS W/ FOLIC ACID TABLET (FP) PO SCH (09:51)
[2024-06-07] MEDS: METHOCARBAMOL 500 MG TABLET PO PRN (09:51)
[2024-06-07] MEDS: BUPRENORPHINE/NALOXONE 0.5 MG/0.125 MG FILM SL SCH (09:54)
[2024-06-07 14:38] LABS: HEMATOCRIT 37.5 % (32.4-45.2); HEMOGLOBIN 12.2 GM/dL (10.7-15.3); MCH 30.1 pg (25.7-33.7); MCHC 32.7 g/dl (32.0-36.0); MEAN PLT VOLUME 9.2 fl (7.5-11.1); PLATELET COUNT 179 10^3/uL (134-434); RBC 4.07 M/mm3 (3.60-5.2); RDW 13.8 % (11.6-15.6); WHITE BLOOD COUNT 5.2 K/mm3 (4.0-10.0)
[2024-06-07 14:53] LABS: POTASSIUM 3.7 mmol/L (3.5-5.1)
[2024-06-07 14:56] LABS: ALBUMIN 4.1 g/dl (3.4-5.0); CALCIUM 9.3 mg/dL (8.5-10.1)
[2024-06-07 14:59] LABS: CREATININE 0.8 mg/dL (0.55-1.3)
[2024-06-07 15:01] LABS: TOT PROT 7.8 g/dl (6.4-8.2)
[2024-06-07] MEDS: ACETAMINOPHEN 325 MG TABLET (FP) PO PRN (17:34)
[2024-06-08] MEDS: methaDONE HCL 10 MG TABLET (FOR DETOX USE ONLY) PO ONE (09:58)
[2024-06-08] MEDS: BUPRENORPHINE/NALOXONE 2 MG/0.5 MG FILM PACKET SL SCH (10:00)
[2024-06-09] MEDS: BUPRENORPHINE/NALOXONE 4 MG/1 MG FILM PACKET SL SCH (09:56)
[2024-06-10] MEDS: BUPRENORPHINE/NALOXONE 8 MG/2 MG FILM PACKET SL SCH (09:40)
[2024-06-10] MEDS: methaDONE HCL 10 MG TABLET (FOR DETOX USE ONLY) PO ONE (09:40)
[2024-06-10] MEDS: cloNIDine HCL 0.1 MG TABLET PO ONE (12:49)
[2024-06-10 18:30] VITALS: BP 117/58; PULSE 72; RESP 16; TEMP 97.5
[2024-06-11] MEDS ORDERED: BUPRENORPHINE/NALOXONE 8 MG/2 MG FILM PACKET SL SCH (10:00)
== END 2024-06-10 18:37 | disposition home or self-care (01) | DRG 773 ==
LOC: YASAS 08:53 → Y6N 10:26
PROVIDERS: ADMIT Allergy & Immunology; ATTEND Surgery
PROC: HZ2ZZZZ Detoxification Services for Substance Abuse Treatment (ICD-10-PCS; principal; 2024-06-06)
DX: F11.23 Opioid dependence with withdrawal (principal); F14.10 Cocaine abuse, uncomplicated; F12.20 Cannabis dependence, uncomplicated; F17.290 Nicotine dependence, other tobacco product, uncomplicated; F19.282 Other psychoactive substance dependence with psychoactive substance-induced sleep disorder; F39 Unspecified mood [affective] disorder; M32.9 Systemic lupus erythematosus, unspecified; Z62.810 Personal history of physical and sexual abuse in childhood; Z63.8 Other specified problems related to primary support group; Z86.19 Personal history of other infectious and parasitic diseases
CPT/HCPCS: 36415; 80053; 80305; 80307; 81025; 85027; 86780; 93005; 93010